=== PATIENT | female | born 1960 | race Caucasian/White ===

== ENCOUNTER 2018-09-12 07:33 | Outpatient (CLI) | payer OTHER | END 2018-09-12 23:59 | disposition home or self-care (01) | LOC: CFH 07:33 | PROVIDERS: ATTEND Specialist | DX: Z02.9 Encounter for administrative examinations, unspecified (principal) ==

== ENCOUNTER 2018-10-03 11:50 | Outpatient (CLI) | payer OTHER ==
[2018-10-19] MEDS ORDERED: None per pt (08:53)
== END 2018-10-03 23:59 | disposition home or self-care (01) ==
LOC: CFH 11:50
PROVIDERS: ATTEND Specialist
DX: R92.0 Mammographic microcalcification found on diagnostic imaging of breast (principal); N64.89 Other specified disorders of breast
CPT/HCPCS: 76642; 77066; G0279